=== PATIENT | male | born 1955 | race Caucasian/White ===

== ENCOUNTER 2021-08-05 07:13 | Day surgery (SDC) | payer SELFPAY ==
[~2021-08-05] VITALS: Ht 172.7 cm; Wt 68.0 kg
[~2021-08-05 07:13] MED LIST: CALCIUM250 M1 PO; CENTRUM SILVER1 TA2 PO; LISINOPRIL5 MG PO; PAXIL40 MG PO; VITAMIN D H1000 UNIT PO
[2021-08-05 11:07] VITALS: BP 131/74
== END 2021-08-05 09:45 | disposition home or self-care (01) | DRG 951 ==
LOC: ENDO 07:13 → ORM 10:30
PROVIDERS: ATTEND Surgery
PROC: 0DBP8ZX Excision of Rectum, Via Natural or Artificial Opening Endoscopic, Diagnostic (ICD-10-PCS; principal; 2021-08-05)
DX: Z12.11 Encounter for screening for malignant neoplasm of colon (principal); D12.8 Benign neoplasm of rectum; K57.30 Diverticulosis of large intestine without perforation or abscess without bleeding; K64.8 Other hemorrhoids; I10 Essential (primary) hypertension; Z86.010 Personal history of colon polyps